=== PATIENT | male | born 1950 | race Caucasian/White ===

== ENCOUNTER 2016-12-23 17:03 | Emergency (ER) | payer MEDICARE ==
[2016-12-23] MEDS ORDERED: diphenhydrAMINE 50 MG CAP PO STA (18:49)
--- NOTE | 2016-12-23 18:49 | ED ---
General Adult HPI - General Chief complaint: Allergic Reaction Stated complaint: STUNG BY BOWEN, HAD EPI PEN Time Seen by Provider: 12/23/16 18:34 Source: patient, RN notes reviewed Mode of arrival: wheelchair Limitations: no limitations - History of Present Illness Initial comments: 66-year-old male presents to the emergency department with a chief complaint of insect bite to the right forearm. Patient states he was sent by [employer]. Patient states about a year ago he had an anaphylactic reaction to a bee sting. Patient states he never felt short of breath he never felt chest discomfort he never felt his throat swelling today but he did use his EpiPen. Patient states he's is now some localized redness to did be staying but he denies any other complaints. They do need a refill of the EpiPen and they thought they should be evaluated. Patient denies any pain or discomfort at this time. Patient denies any recent fever, chills, shortness of breath, chest pain, back pain, abdominal pain, nausea vomiting, numbness or tingling, dysuria or hematuria, constipation or diarrhea, headaches or visual changes, or any other current symptoms. - Related Data Home Medications Medication Instructions Recorded Confirmed Multivitamins, Thera [Multivitamin 1 tab PO DAILY 12/23/16 12/23/16 (formulary)] Psyllium Husk [Metamucil] 1.2 gm PO HS 12/23/16 12/23/16 Previous Rx's Medication Instructions Recorded EPINEPHrine (Auto Inject) [Epipen] 0.3 mg IM ONCE PRN #2 syringe 12/23/16 Famotidine [Pepcid] 20 mg PO BID #10 tablet 12/23/16 diphenhydrAMINE [Benadryl] 50 mg PO HS PRN #5 capsule 12/23/16 predniSONE 50 mg PO DAILY #5 tab 12/23/16 Allergies Allergy/AdvReac Type Severity Reaction Status Date / Time Penicillins Allergy Severe Anaphylaxis Verified 12/23/16 19:12 venom-honey bee Allergy Severe Anaphylaxis Verified 12/23/16 19:12 [bee venom (honey bee)] Review of Systems ROS Statement: Those systems with pertinent positive or pertinent negative responses have been documented in the HPI. ROS Other: All systems not noted in ROS Statement are negative. 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 History of Any Multi-Drug Resistant Organisms: None Reported Past Surgical History: Cholecystectomy, Tonsillectomy Additional Past Surgical History / Comment(s): KIDNEY STONE PROCEDURES., CHOLECYSTECTOMY (JULY 2014). Past Anesthesia/Blood Transfusion Reactions: No Reported Reaction Past Psychological History: No Psychological Hx Reported Smoking Status: Never smoker Past Alcohol Use History: Occasional Past Drug Use History: None Reported - Past Family History Father Family Medical History: Cancer Additional Family Medical History / Comment(s): PROSTATE CA Mother Family Medical History: Cancer Additional Family Medical History / Comment(s): LUNG CA General Exam Limitations: no limitations General appearance: alert, in no apparent distress Head exam: Present: atraumatic, normocephalic, normal inspection Neck exam: Present: normal inspection. Absent: tenderness, meningismus, lymphadenopathy Respiratory exam: Present: normal lung sounds bilaterally. Absent: respiratory distress, wheezes, rales, rhonchi, stridor Cardiovascular Exam: Present: regular rate, normal rhythm, normal heart sounds. Absent: systolic murmur, diastolic murmur, rubs, gallop, clicks Extremities exam: Present: normal inspection, full ROM, normal capillary refill , other (insect bite to the right forearm with a circular type spots of urticaria). Absent: tenderness, pedal edema, joint swelling, calf tenderness Neurological exam: Present: alert, oriented X3 Psychiatric exam: Present: normal affect, normal mood Skin exam: Present: warm, dry, intact, normal color. Absent: rash Course Vital Signs 12/23/16 17:20 Temperature 98.1 F Pulse Rate 80 Respiratory 16 Rate Blood Pressure 142/84 O2 Sat by Pulse 98 Oximetry Medical Decision Making - Medical Decision Making 66-year-old male presents for ALLERGIC reaction. At this time we did discuss care and follow-up. We will start him on steroids and Benadryl for home. This time he did use the EpiPen however he did not have any anaphylactic-like reaction. He had no shortness of breath he has no chest pain he has difficulty breathing. This time elected for nonacute he had no complaint. This time we discussed care follow-up and return parameters. Patient stated that he understood and all his questions have been answered. At this time the patient will be discharged home. Disposition Clinical Impression: Allergic reaction to insect sting Disposition: HOME SELF-CARE Condition: Stable Instructions: Anaphylaxis (ED) Additional Instructions: Please use medication as discussed. Please follow up with family doctor if symptoms have not improved over the next two days. Please return to the emergency room if your symptoms increase or worsen or for any other concerns. Prescriptions: diphenhydrAMINE [Benadryl] 50 mg PO HS PRN #5 capsule PRN Reason: Itching EPINEPHrine (Auto Inject) [Epipen] 0.3 mg IM ONCE PRN #2 syringe PRN Reason: Anaphylaxis Famotidine [Pepcid] 20 mg PO BID #10 tablet predniSONE 50 mg PO DAILY #5 tab Referrals: Trevor Fishman MD [Primary Care Provider] - 1-2 days Time of Disposition: 19:37
[2016-12-23 19:52] VITALS: BP 138/72; PULSE 78; RESP 18; TEMP 98.2
== END 2016-12-23 19:48 | disposition home or self-care (01) ==
LOC: EC 17:03
DX: S50.861A Insect bite (nonvenomous) of right forearm, initial encounter (principal); Z79.899 Other long term (current) drug therapy; Z88.0 Allergy status to penicillin; Z91.030 Bee allergy status; W57.XXXA Bitten or stung by nonvenomous insect and other nonvenomous arthropods, initial encounter
CPT/HCPCS: 99283

== ENCOUNTER → 2017-02-24 | Outpatient (CLI) | payer MEDICARE ==
[2017-02-24 13:12] LABS: Basophils % (A) 1 %; CH 31.5; Eosinophils # (A) 0.1 k/uL (0-0.7); Eosinophils % (A) 1 %; HCT 46.4 % (39.0-53.0); HDW 2.43; HGB 14.9 gm/dL (13.0-17.5); Luc # (Auto) 0.09; Luc % (Auto) 2; Lymphocytes # (A) 1.9 k/uL (1.0-4.8); Lymphocytes % (A) 44 %; MCH 30.9 pg (25.0-35.0); MCHC 32.2 g/dL (31.0-37.0); MCV 95.9 fL (80.0-100.0); Monocytes # (A) 0.3 k/uL (0-1.0); Monocytes % (A) 7 %; Neutrophils # (A) 1.9 k/uL (1.3-7.7); Neutrophils % (A) 45 %; RBC 4.84 m/uL (4.30-5.90); RDW 12.4 % (11.5-15.5); WBC 4.3 k/uL (3.8-10.6); WBC (Perox) 4.46
[2017-02-24 13:19] LABS: Anion Gap 8 mmol/L; Blood Urea Nitrogen 18 mg/dL (9-20); Calcium 9.8 mg/dL (8.4-10.2); Carbon Dioxide 27 mmol/L (22-30); Chloride 108 mmol/L (98-107); Glucose 89 mg/dL (74-99); Non-African American GFR(MDRD) >60 (>60 ml/min/1.73 sqM); Potassium 4.9 mmol/L (3.5-5.1); Sodium 143 mmol/L (137-145)
[2017-02-24 13:22] LABS: Rheumatoid Factor, Qnt <9 IU/mL (<12)
[2017-02-24 20:28] LABS: ANA w/Reflex to Titer NEGATIVE (NEGATIVE); Cyclic Citrull Pep IgG Unit <0.5 U/mL; Cyclic Citrullinated Pep IgG NEGATIVE (NEGATIVE)
== END | disposition home or self-care (01) ==
LOC: LABWHC1 11:56
PROVIDERS: ATTEND Internal Medicine
DX: J30.9 Allergic rhinitis, unspecified (principal); M19.90 Unspecified osteoarthritis, unspecified site
CPT/HCPCS: 36415; 80048; 85025; 86038; 86161; 86200; 86431

== ENCOUNTER 2018-11-01 13:05 | Emergency (ER) | payer MEDICARE ==
[2018-11-01] MEDS ORDERED: diphenhydrAMINE 25 MG CAP PO STA (13:16)
[2018-11-01] MEDS ORDERED: predniSONE 20 MG TAB PO STA (13:16)
[2018-11-01] MEDS ORDERED: SODIUM CHLORIDE 0.9% 1,000 ML IV ONE (13:16)
--- NOTE | 2018-11-01 13:18 | ED ---
Allergic Reaction HPI - General Chief complaint: Allergic Reaction Stated complaint: Bee sting,allergic reaction Time Seen by Provider: 11/01/18 13:12 Source: patient Mode of arrival: ambulatory Limitations: no limitations - History of Present Illness Initial Comments: Patient is a 68-year-old male presents with the chief complaint ALLERGIC reaction after getting stung by a bee. Patient has a history of anaphylaxis to bee stings. He states he gave himself an EpiPen, took a "swig" of children's Benadryl, and 20 mg of prednisone at home. Patient states that he is not having trouble breathing at this time, he states that this is not as bad as reaction she's had in the past. - Related Data Home Medications Medication Instructions Recorded Confirmed Multivitamins, Thera [Multivitamin 1 tab PO HS 12/23/16 11/01/18 (formulary)] Psyllium Husk [Metamucil] 1.2 gm PO HS 12/23/16 11/01/18 Tamsulosin [Flomax] 0.4 mg PO HS 11/01/18 11/01/18 diphenhydrAMINE [Benadryl] 25 mg PO ONCE PRN 11/01/18 11/01/18 predniSONE 50 mg PO ONCE PRN 11/01/18 11/01/18 Previous Rx's Medication Instructions Recorded EPINEPHrine (Auto Inject) [Epipen] 0.3 mg IM ONCE PRN #2 syringe 12/23/16 EPINEPHrine [Epipen 2-Yaron] 0.3 mg IM ONCE PRN #1 pack 11/01/18 predniSONE [Deltasone] 20 mg PO DAILY #12 tablet 11/01/18 Allergies Allergy/AdvReac Type Severity Reaction Status Date / Time Penicillins Allergy Severe Anaphylaxis Verified 11/01/18 13:58 venom-honey bee Allergy Severe Anaphylaxis Verified 11/01/18 13:58 [bee venom (honey bee)] Review of Systems ROS Statement: Those systems with pertinent positive or pertinent negative responses have been documented in the HPI. ROS Other: All systems not noted in ROS Statement are negative. 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 History of Any Multi-Drug Resistant Organisms: None Reported Past Surgical History: Cholecystectomy, Tonsillectomy Additional Past Surgical History / Comment(s): KIDNEY STONE PROCEDURES., CHOLECYSTECTOMY (JULY 2014). Past Anesthesia/Blood Transfusion Reactions: No Reported Reaction Past Psychological History: No Psychological Hx Reported Smoking Status: Never smoker Past Alcohol Use History: Occasional Past Drug Use History: None Reported - Past Family History Father Family Medical History: Cancer Additional Family Medical History / Comment(s): PROSTATE CA Mother Family Medical History: Cancer Additional Family Medical History / Comment(s): LUNG CA General Exam Limitations: no limitations General appearance: alert, in no apparent distress Head exam: Present: atraumatic, normocephalic Eye exam: Present: normal appearance ENT exam: Present: normal exam, normal oropharynx, mucous membranes moist Neck exam: Present: normal inspection Respiratory exam: Present: normal lung sounds bilaterally. Absent: respiratory distress, wheezes Cardiovascular Exam: Present: regular rate, normal rhythm GI/Abdominal exam: Present: soft. Absent: distended, tenderness Rectal exam: Present: deferred Extremities exam: Present: normal inspection, full ROM Back exam: Present: normal inspection Neurological exam: Present: alert, oriented X3 Psychiatric exam: Present: normal affect, normal mood Skin exam: Present: warm, dry, intact Course Vital Signs 11/01/18 11/01/18 13:08 14:38 Temperature 98.3 F 97.8 F Pulse Rate 90 67 Respiratory 18 16 Rate Blood Pressure 167/89 134/74 O2 Sat by Pulse 97 96 Oximetry Medical Decision Making - Medical Decision Making Patient presents with a chief complaint of an ALLERGIC reaction after bee sting. On initial evaluation, vitals are stable, patient is in no acute distress, patient does not appear to be in anaphylactic shock. An IV will be started, patient will be given an additional 25 mg of Benadryl, and 40 more milligrams of prednisone. Patient will be observed in the emergency department for a period of time. 2:41 PM After a period of observation, the patient is doing well, he has no signs of anaphylaxis. He is stable for discharge. Patient discharged with prednisone and EpiPen's. Patient was instructed to follow up with primary care mother due to days, return to the ED if symptoms worsen or change. Disposition Clinical Impression: Allergic reaction Disposition: HOME SELF-CARE Condition: Good Instructions (If sedation given, give patient instructions): Anaphylaxis (ED) Prescriptions: predniSONE [Deltasone] 20 mg PO DAILY #12 tablet EPINEPHrine [Epipen 2-Yaron] 0.3 mg IM ONCE PRN #1 pack PRN Reason: Anaphylaxis Is patient prescribed a controlled substance at d/c from ED?: No Referrals: Nolan Almodovar MD [Primary Care Provider] - 1-2 days
[2018-11-01 14:39] VITALS: BP 134/74; PULSE 67; RESP 16; TEMP 97.8
== END 2018-11-01 15:26 | disposition home or self-care (01) ==
LOC: EC 13:05
DX: T63.441A Toxic effect of venom of bees, accidental (unintentional), initial encounter (principal); Z88.0 Allergy status to penicillin; Z91.030 Bee allergy status; Z79.899 Other long term (current) drug therapy
CPT/HCPCS: 99283; 96360; 96361; J7512